=== PATIENT | female | born 1950 | race Hispanic/Latino ===

== ENCOUNTER 2018-04-26 22:19 | Observation (INO) | payer BC ==
[2018-04-26] MEDS ORDERED: Sodium Chloride 0.9% 1,000 ML IV STA (22:44)
--- NOTE | 2018-04-26 22:45 | ED PDOC ---
HPI: General Adult Time Seen by Provider: 04/26/18 22:31 Chief Complaint (Nursing): Palpitations Chief Complaint (Provider): Palpitations History Per: Patient History/Exam Limitations: no limitations Onset/Duration Of Symptoms: Days (yesterday) Current Symptoms Are (Timing): Gone Now Additional Complaint(s): Pt. with dizziness when outside for a while so she went inside and felt better. Today she went out again and had the dizziness so came back in and felt better. This evening she get bad news from her sister and got palpitations and anxiousness so came to the ER. Denies, chest pain, dyspnea, weakness, cough. No leg pain. No numbness, tingles. Currently feels better. Past Medical History Reviewed: Nursing Documentation, Vital Signs Vital Signs: Last Vital Signs Temp 97.8 F 04/26/18 22:26 Pulse 62 04/26/18 22:26 Resp 16 04/26/18 22:26 BP 157/76 H 04/26/18 22:26 Pulse Ox 99 04/27/18 00:06 - Medical History PMH: Hypercholesterolemia Denies: Chronic Kidney Disease - Surgical History Other surgeries: knee surg - Family History Family History: States: Unknown Family Hx - Social History Alcohol: None Drugs: Denies - Home Medications Home Medications: Ambulatory Orders Medication Instructions Recorded Nitrofurantoin Macrocrystals 100 mg PO BID #13 cap 06/25/16 [Macrobid] - Allergies Allergies/Adverse Reactions: Allergies Allergy/AdvReac Type Severity Reaction Status Date / Time No Known Allergies Allergy Verified 06/24/16 23:25 - Laboratory Results Result Diagrams: 04/26/18 23:20 04/26/18 23:20 Interpretation Of Abn Labs: no acute - ECG ECG Rhythm: Positive for: Sinus Rhythm Interpretation Of Abn EKG: q waves anterior O2 Sat by Pulse Oximetry: 99 Pulse Ox Interpretation: Normal - CT Scan/US ct Other Rad Studies (CT/US): Read By Radiologist Other Rad Interpretation: no acute - Progress ED Course And Treament: 0002: Stable. Pt. states feeling is like a discomfort. Is getting better. AAOX3. Considering q waves on ekg and symptoms with hx, will admit. PCP Dr. Robles. Spoke with Dr. Ochoa who will admit for medical service. Disposition - Clinical Impression Clinical Impression: Palpitations, Atypical chest pain, Abnormal Q waves on electrocardiogram - Disposition Disposition Time: 00:05 Condition: FAIR - Pt Status Changed To: Hospital Disposition Of: Observation - POA Present On Arrival: None
[2018-04-26 23:40] LABS: BASO # 0.1 K/uL (0.0-0.2); BASO % 0.6 % (0.0-2.0); EOS # 0.1 K/uL (0.0-0.7); EOS % 0.9 % (0.0-4.0); HEMOGLOBIN 13.4 g/dL (12.0-16.0); LYMPH % 18.8 % (20.0-40.0); MEAN CORPUSCULAR HEMOGLOBIN 31.7 pg (27.0-31.0); MEAN CORPUSCULAR HGB CONC 34.5 g/dL (33.0-37.0); MEAN PLATELET VOLUME 9.6 fl (7.2-11.7); MONO # 0.8 K/uL (0.0-0.8); MONO % 7.5 % (0.0-10.0); NEUT # 7.5 K/uL (1.8-7.0); NEUT % 72.2 % (50.0-75.0); NRBC % 0.1 % (0.0-0.0); RBC 4.21 Mil/uL (3.80-5.20); RED CELL DISTRIBUTION WIDTH 12.7 % (11.5-14.5); WHITE BLOOD COUNT 10.5 K/uL (4.8-10.8)
[2018-04-26 23:49] LABS: ALB/GLOB RATIO 1.3 (1.0-2.1); ALBUMIN 4.4 g/dL (3.5-5.0); ALT/SGPT 31 U/L (9-52); AST/SGOT 34 U/L (14-36); BLOOD UREA NITROGEN 19 mg/dl (7-17); CALCIUM 9.6 mg/dL (8.4-10.2); GFR AFRICAN-AMERICAN > 60; GFR NON-AFRICAN AMERICAN > 60
--- NOTE | 2018-04-27 01:00 | CP.PCM.HP ---
History of Present Illness - History of Present Illness History of Present Illness: CC: Palpitations HPI: This is a 67 y/o female with MHx significant only for HLD who comes in with several episodes of palpitations and weakness, and some ?SOB. She states that the episodes started yesterday, but today she had one episode that was almost an hour long. She thought she was feeling this way because she had been out in the heat and got dehydrated, however, she became anxious after speaking with her sister earlier today about some kind of stressful topic, and again had the same sensations. She denies ever having sensations like this before. Denies any f/c/n/v/d. ROS: 14 systems reviewed, negative other than HPI MHx: HLD SHx: L TKR, bunion surgery, hysterectomy, tubal ligation Allergies: NKDA Medications: per med rec Family Hx: M with heart problems, Sister with CVA and [place] Social Hx: Lives alone, but lot of family nearby, no tobacco, no EtOH Surrogate Dec Mkr: daughter, info on chart Present on Admission - Present on Admission Any Indicators Present on Admission: No Past Patient History - Past Social History Alcohol: None Drugs: Denies - CARDIAC Hx Hypercholesterolemia: Yes - PULMONARY Hx Respiratory Disorders: No - NEUROLOGICAL Hx Neurological Disorder: No - HEENT Hx HEENT Problems: No - RENAL Hx Chronic Kidney Disease: No - ENDOCRINE/METABOLIC Hx Endocrine Disorders: No - HEMATOLOGICAL/ONCOLOGICAL Hx Blood Disorders: No - INTEGUMENTARY Hx Dermatological Problems: No - MUSCULOSKELETAL/RHEUMATOLOGICAL Hx Musculoskeletal Disorders: No - GASTROINTESTINAL Hx Gastrointestinal Disorders: No - GENITOURINARY/GYNECOLOGICAL Hx Genitourinary Disorders: No - PSYCHIATRIC Hx Psychophysiologic Disorder: No Hx Substance Use: No - SURGICAL HISTORY Hx Hysterectomy: Yes Hx Musculoskeletal Surgery: Yes (left knee) Other/Comment: Left knee replacement - ANESTHESIA Hx Anesthesia: Yes Hx Anesthesia Reactions: No Meds Allergies/Adverse Reactions: Allergies Allergy/AdvReac Type Severity Reaction Status Date / Time No Known Allergies Allergy Verified 04/27/18 00:58 Physical Exam - Constitutional Appears: No Acute Distress - Head Exam Head Exam: ATRAUMATIC, NORMOCEPHALIC - Eye Exam Eye Exam: EOMI, PERRL - ENT Exam ENT Exam: Mucous Membranes Moist - Neck Exam Neck exam: Positive for: Full Rom - Respiratory Exam Respiratory Exam: Clear to Auscultation Bilateral, NORMAL BREATHING PATTERN - Cardiovascular Exam Cardiovascular Exam: REGULAR RHYTHM, +S1, +S2 - GI/Abdominal Exam GI & Abdominal Exam: Normal Bowel Sounds, Soft - Extremities Exam Extremities exam: Positive for: full ROM, normal inspection - Neurological Exam Neurological exam: Alert, CN II-XII Intact, Oriented x3 - Psychiatric Exam Psychiatric exam: Normal Affect, Normal Mood - Skin Skin Exam: Dry, Warm Results - Vital Signs Recent Vital Signs: Last Vital Signs Temp 98.1 F 04/27/18 00:08 Pulse 77 04/27/18 00:08 Resp 15 04/27/18 00:08 BP 137/79 04/27/18 00:08 Pulse Ox 100 04/27/18 00:08 - Labs Result Diagrams: 04/26/18 23:20 04/26/18 23:20 Labs: Laboratory Results - last 24 hr 04/26/18 04/26/18 23:20 23:20 WBC 10.5 RBC 4.21 Hgb 13.4 Hct 38.8 MCV 92.0 MCH 31.7 H MCHC 34.5 RDW 12.7 Plt Count 250 MPV 9.6 Neut % (Auto) 72.2 Lymph % (Auto) 18.8 L [facility] % (Auto) 7.5 Eos % (Auto) 0.9 Baso % (Auto) 0.6 Neut # (Auto) 7.5 H Lymph # (Auto) 2.0 [facility] # (Auto) 0.8 Eos # (Auto) 0.1 Baso # (Auto) 0.1 Sodium 142 Potassium 4.1 Chloride 108 H Carbon Dioxide 23 Anion Gap 15 BUN 19 H Creatinine 0.8 Est GFR ( Amer) > 60 Est GFR (Non-Af Amer) > 60 Random Glucose 107 H Calcium 9.6 Phosphorus 3.7 Magnesium 2.2 Total Bilirubin 0.5 AST 34 ALT 31 Alkaline Phosphatase 54 Troponin I < 0.0120 Total Protein 7.8 Albumin 4.4 Globulin 3.4 Albumin/Globulin Ratio 1.3 - EKG Data EKG Interpreted by: Myself EKG shows normal: Sinus rhythm Rate: Normal - EKG Data EKG comments: EKG does show ? q waves/poor R wave progression in anterior leads - Imaging and Cardiology Chest x-ray Status: Image reviewed by me (unremarkable) Assessment & Plan (1) Palpitations Assessment and Plan: 67 y/o female with HLD presenting with palpitations, SOB, ?atypical CP, and abnormal EKG. -Tele obs -Serial trops -Repeat EKG in AM -Echo ordered for AM -TSH/FT4 for AM -Continue ASA, cont home statin -SCDs for DVT PPx Status: Acute (2) Abnormal Q waves on electrocardiogram Status: Acute (3) Atypical chest pain Status: Acute (4) DVT prophylaxis Status: Acute
--- NOTE | 2018-04-27 08:51 | CT ---
PROCEDURE: CT HEAD WITHOUT CONTRAST. HISTORY: headache COMPARISON: None available. TECHNIQUE: Axial computed tomography images were obtained through the head/brain without intravenous contrast. Radiation dose: Total exam DLP = 688.93 mGy-cm. This CT exam was performed using one or more of the following dose reduction techniques: Automated exposure control, adjustment of the mA and/or kV according to patient size, and/or use of iterative reconstruction technique. FINDINGS: HEMORRHAGE: No intracranial hemorrhage. BRAIN: No mass effect or edema. No atrophy or chronic microvascular ischemic changes. VENTRICLES: Unremarkable. No hydrocephalus. CALVARIUM: Unremarkable. PARANASAL SINUSES: Unremarkable as visualized. No significant inflammatory changes. MASTOID AIR CELLS: Unremarkable as visualized. No inflammatory changes. OTHER FINDINGS: None. IMPRESSION: Normal CT of the Head. No intracranial mass, hemorrhage or evidence of acute infarct. Preliminary interpretation of this examination was reported by [facility] at 11:34 p.m. on 04/26/2018. There is concurrence of this report with the preliminary interpretation. Item
[2018-04-27] MEDS ORDERED: Enoxaparin 40 mg Syringe SC SCH (09:00)
--- NOTE | 2018-04-27 09:44 | RAD ---
HISTORY: discomfort COMPARISON: No prior. FINDINGS: LUNGS: No active pulmonary disease. PLEURA: No significant pleural effusion identified, no pneumothorax apparent. CARDIOVASCULAR: Normal. OSSEOUS STRUCTURES: No significant abnormalities. VISUALIZED UPPER ABDOMEN: Normal. OTHER FINDINGS: None. IMPRESSION: No active disease.
--- NOTE | 2018-04-27 16:46 | CARD ---
APPROVED REPORT EXAM: Two-dimensional and M-mode echocardiogram with Doppler and color Doppler. Other Information Quality : GoodRhythm : NSR INDICATION Palpitations 2D DIMENSIONS IVSd0.84 (0.7-1.1cm)LVDd4.48 (3.9-5.9cm) LVOT Diameter1.77 (1.8-2.4cm)PWd0.59 (0.7-1.1cm) IVSs1.14 (0.8-1.2cm)LVDs2.74 (2.5-4.0cm) FS (%) 38.9 %PWs1.07 (0.8-1.2cm) M-Mode DIMENSIONS Left Atrium (MM)3.78 (2.5-4.0cm)IVSd0.84 (0.7-1.1cm) Aortic Root2.41 (2.2-3.7cm)LVDd4.59 (4.0-5.6cm) Aortic Cusp Exc.1.72 (1.5-2.0cm)PWd0.91 (0.7-1.1cm) IVSs1.36 cmFS (%) 42 % LVDs2.65 (2.0-3.8cm)PWs1.31 cm Mitral Valve MV E Ycwbltho35.0cm/sMV DECEL [id number] A Ihhgvspy74.7cm/s MV [id number]/A ratio0.9MVA (PHT)3.59cm2 TDI Lateral E' Peak V11.08cm/sMedial E' Peak V10.51cm/sE/Lateral E'6.0 E/Medial E'6.3 Pulmonary Valve PV Peak Oenjtyfq53.1cm/s Tricuspid Valve TR Peak Ggkhshvp184zs/sRAP [id number] Peak Gr.13mmHg [id number] LEFT VENTRICLE The left ventricle is normal size. There is normal left ventricular wall thickness. The left ventricular function is normal. The left ventricular ejection fraction is within the normal range. The Ejection Fraction is 60-65%. There is normal LV segmental wall motion. The left ventricular diastolic function is normal. RIGHT VENTRICLE The right ventricle is normal size. The right ventricular systolic function is normal. ATRIA The left atrium size is normal. The right atrium size is normal. AORTIC VALVE The aortic valve is normal in structure. No aortic regurgitation is present. There is no aortic valvular stenosis. MITRAL VALVE The mitral valve is normal in structure. There is no mitral valve stenosis. Mitral regurgitation is trace to mild. TRICUSPID VALVE The tricuspid valve is normal in structure. There is trace to mild tricuspid regurgitation. PULMONIC VALVE The pulmonary valve is normal in structure. There is trace to mild pulmonic valvular regurgitation. GREAT VESSELS The aortic root is normal in size. The IVC is normal in size and collapses >50% with inspiration. PERICARDIAL EFFUSION The pericardium appears normal. <Conclusion> The left ventricular function is normal. The left ventricular ejection fraction is within the normal range. The Ejection Fraction is 60-65%. Mitral regurgitation is trace to mild. There is trace to mild tricuspid regurgitation.
--- NOTE | 2018-04-27 16:48 | CARD ---
APPROVED REPORT EKG Measurement Heart [id number] <Conclusion> Sinus bradycardia Possible Anterior infarct, age undetermined Abnormal ECG
--- NOTE | 2018-04-27 16:51 | CARD ---
APPROVED REPORT EKG Measurement Heart [id number] <Conclusion> Normal sinus rhythm Anterior infarct, age undetermined Abnormal ECG
[2018-04-28 08:37] VITALS: PULSE 72; TEMP 97.8
[2018-04-28 09:29] VITALS: BP 109/64
--- NOTE | 2018-04-28 10:55 | CP.PCM.DIS ---
Provider - Provider Date of Admission: 04/27/18 00:06 Attending physician: Sobia Ochoa MD Time Spent in preparation of Discharge (in minutes): 30 Diagnosis - Discharge Diagnosis (1) Atypical chest pain Status: Acute Hospital Course - Lab Results Lab Results: Most Recent Lab Values WBC 10.5 K/uL (4.8-10.8) 04/26/18 23:20 RBC 4.21 Mil/uL (3.80-5.20) 04/26/18 23:20 Hgb 13.4 g/dL (12.0-16.0) 04/26/18 23:20 Hct 38.8 % (34.0-47.0) 04/26/18 23:20 MCV 92.0 fl (81.0-99.0) 04/26/18 23:20 MCH 31.7 pg (27.0-31.0) H 04/26/18 23:20 MCHC 34.5 g/dL (33.0-37.0) 04/26/18 23:20 RDW 12.7 % (11.5-14.5) 04/26/18 23:20 Plt Count 250 K/uL (130-400) 04/26/18 23:20 MPV 9.6 fl (7.2-11.7) 04/26/18 23:20 Neut % (Auto) 72.2 % (50.0-75.0) 04/26/18 23:20 Lymph % (Auto) 18.8 % (20.0-40.0) L 04/26/18 23:20 [place] % (Auto) 7.5 % (0.0-10.0) 04/26/18 23:20 Eos % (Auto) 0.9 % (0.0-4.0) 04/26/18 23:20 Baso % (Auto) 0.6 % (0.0-2.0) 04/26/18 23:20 Neut # (Auto) 7.5 K/uL (1.8-7.0) H 04/26/18 23:20 Lymph # (Auto) 2.0 K/uL (1.0-4.3) 04/26/18 23:20 [place] # (Auto) 0.8 K/uL (0.0-0.8) 04/26/18 23:20 Eos # (Auto) 0.1 K/uL (0.0-0.7) 04/26/18 23:20 Baso # (Auto) 0.1 K/uL (0.0-0.2) 04/26/18 23:20 Sodium 142 mmol/l (132-148) 04/26/18 23:20 Potassium 4.1 MMOL/L (3.6-5.0) 04/26/18 23:20 Chloride 108 mmol/L (98-107) H 04/26/18 23:20 Carbon Dioxide 23 mmol/L (22-30) 04/26/18 23:20 Anion Gap 15 (10-20) 04/26/18 23:20 BUN 19 mg/dl (7-17) H 04/26/18 23:20 Creatinine 0.8 mg/dl (0.7-1.2) 04/26/18 23:20 Est GFR ( Amer) > 60 04/26/18 23:20 Est GFR (Non-Af Amer) > 60 04/26/18 23:20 Random Glucose 107 mg/dL (65-105) H 04/26/18 23:20 Calcium 9.6 mg/dL (8.4-10.2) 04/26/18 23:20 Phosphorus 3.7 mg/dl (2.5-4.5) 04/26/18 23:20 Magnesium 2.2 MG/DL (1.6-2.3) 04/26/18 23:20 Total Bilirubin 0.5 mg/dl (0.2-1.3) 04/26/18 23:20 AST 34 U/L (14-36) 04/26/18 23:20 ALT 31 U/L (9-52) 04/26/18 23:20 Alkaline Phosphatase 54 U/L (38-126) 04/26/18 23:20 Troponin I < 0.0120 ng/mL (0.00-0.120) 04/27/18 18:15 Total Protein 7.8 G/DL (6.3-8.2) 04/26/18 23:20 Albumin 4.4 g/dL (3.5-5.0) 04/26/18 23:20 Globulin 3.4 gm/dL (2.2-3.9) 04/26/18 23:20 Albumin/Globulin Ratio 1.3 (1.0-2.1) 04/26/18 23:20 Free T4 0.92 ng/dL (0.78-2.19) 04/27/18 06:00 TSH 3rd Generation 3.81 mIU/ML (0.46-4.68) 04/27/18 06:00 - Hospital Course Hospital Course: 67 y/o female with MHx significant only for HLD who comes in with several episodes of palpitations and weakness, and some ?SOB. She states that the episodes started yesterday, but today she had one episode that was almost an hour long. She thought she was feeling this way because she had been out in the heat and got dehydrated, however, she became anxious after speaking with her sister earlier today about some kind of stressful topic, and again had the same sensations. She denies ever having sensations like this before. Denies any f/c/n /v/d. Patient had no acute ischemic or infarct changes on EKG, troponins negative. Stable for dischargre home and follow up with PCP in one week. Discharge Exam - Head Exam Additional comments: EXAM: Vitals stable and reviewed GEN: WDWN, alert, cooperative HEENT: NCAT, PERRL, EOMI Neck: supple, no lymphadenopathy CARDIO: +S1S2, RRR, NO M/R/G LUNG: CTAB, NO W/R/R ABD: soft, NT, ND, no masses, no HSM EXT: no edema, pedal pulses Neuro: AAOx3, Strength equal, bilateral UE/LE Psych: normal mood, normal affect Discharge Plan - Discharge Medications Prescriptions: Aspirin 325 mg PO DAILY #30 tab Atorvastatin [Lipitor] 10 mg PO HS #20 tab - Follow Up Plan Condition: FAIR Disposition: HOME/ ROUTINE Additional Instructions: PLEASE FOLLOW UP WITH YOUR PRIMARY CARE PHYSICIAN IN ONE WEEK.
[2018-04-28 11:26] VITALS: RESP 16; O2SAT 99
== END 2018-04-28 13:00 | disposition home or self-care (01) ==
LOC: H.ER 22:19 → H.ERHOLD 04-27 00:06 → H.ICU/CCU 04-27 11:16
PROVIDERS: ADMIT Internal Medicine; ATTEND Internal Medicine
DX: R07.89 Other chest pain (principal); R00.2 Palpitations; R94.31 Abnormal electrocardiogram [ECG] [EKG]; E78.5 Hyperlipidemia, unspecified; E78.00 Pure hypercholesterolemia, unspecified; Z96.652 Presence of left artificial knee joint
CPT/HCPCS: 70450; 71045; 80053; 83735; 84100; 84439; 84443; 84484; 85025; 87081; 93005; 93306; 99285; G0378; J7030